=== PATIENT | female | born 1950 | race Caucasian/White ===

== ENCOUNTER 2018-05-02 20:18 | Emergency (ER) | payer MEDICARE, OTHER ==
--- NOTE | 2018-05-02 21:16 | RAD ---
RADIOGRAPH RIGHT ANKLE 3 VIEWS: 05/02/18 HISTORY: 67-year-old female status post acute traumatic injury to the ankle due to fall. FINDINGS: There is a transversely oriented linear fracture lucency without displacement of the lateral malleolu s, approximately 5 or 6 mm inferior to the level of the talar dome. Ankle mortise is symmetrical. No other fracture is visualized. There is lateral soft tissue swelling. IMPRESSION: Acute, traumatic, nondisplaced Bustamante type A fracture of the lateral malleolus. POS: [facility]ANIEL
== END 2018-05-02 22:30 | disposition home or self-care (01) ==
LOC: ERS 20:18
DX: S82.65XA Nondisplaced fracture of lateral malleolus of left fibula, initial encounter for closed fracture (principal); W10.9XXA Fall (on) (from) unspecified stairs and steps, initial encounter

== ENCOUNTER 2021-03-05 08:49 | Outpatient (CLI) | payer MEDICARE, OTHER | END 2021-03-05 08:50 | disposition home or self-care (01) | LOC: BICMAMMO 08:49 | PROVIDERS: ATTEND Internal Medicine | DX: Z12.31 Encounter for screening mammogram for malignant neoplasm of breast (principal); Z80.3 Family history of malignant neoplasm of breast | CPT/HCPCS: 77063; 77067 ==

== ENCOUNTER 2021-07-23 13:45 | Outpatient (CLI) | payer MEDICARE, OTHER | END 2021-07-23 13:46 | disposition home or self-care (01) | LOC: BICCT 13:45 | PROVIDERS: ATTEND Internal Medicine Endocrinology, Diabetes & Metabolism | DX: G31.84 Mild cognitive impairment of uncertain or unknown etiology (principal) | CPT/HCPCS: 70450 ==